=== PATIENT | female | born 1975 | race Caucasian/White ===

== ENCOUNTER 2017-07-08 15:55 | Outpatient (CLI) | payer BC ==
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
== END 2017-07-08 15:56 ==
LOC: RAD 15:55
PROVIDERS: ATTEND Family Medicine
DX: M54.2 Cervicalgia (principal); M54.41 Lumbago with sciatica, right side
CPT/HCPCS: 72040; 72100

== ENCOUNTER 2017-09-10 10:39 | Outpatient (CLI) | payer BC | END 2017-09-10 10:40 | LOC: LABRHC 10:39 | PROVIDERS: ATTEND Physician Assistant | DX: R30.0 Dysuria (principal) | CPT/HCPCS: 87086 ==

== ENCOUNTER 2017-09-11 08:04 | Outpatient (CLI) | payer BC ==
[2017-09-11 08:39] LABS: BASOPHILS % 0.6 (0.0-1.5); EOSINOPHILS % 1.7 % (0.0-6.8); MEAN CORPUSCULAR HEMOGLOBIN 27.9 pg (28.0-34.0); MEAN CORPUSCULAR VOLUME 86.3 fl (80.0-100.0); NEUTROPHILS # 8.9 # k/uL (1.4-7.7)
[2017-09-11 09:06] LABS: eGFR (African) > 60; eGFR (Non-African) > 60
== END 2017-09-11 08:06 ==
LOC: LAB 08:04
PROVIDERS: ATTEND Physician Assistant
DX: R63.5 Abnormal weight gain (principal); R53.83 Other fatigue; M25.50 Pain in unspecified joint
CPT/HCPCS: 36415; 80053; 84443; 85025; 85651; 86038; 86431

== ENCOUNTER 2017-11-14 10:56 | Outpatient (CLI) | payer BC ==
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
== END 2017-11-14 12:20 ==
LOC: RHEU 10:56
PROVIDERS: ATTEND Internal Medicine
DX: M13.0 Polyarthritis, unspecified (principal)
CPT/HCPCS: 36415; 99213; 99214

== ENCOUNTER 2017-12-19 14:50 | Outpatient (CLI) | payer BC ==
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
== END 2017-12-19 15:00 ==
LOC: RHEU 14:50
PROVIDERS: ATTEND Internal Medicine
DX: M13.0 Polyarthritis, unspecified (principal)
CPT/HCPCS: 99213; 99214

== ENCOUNTER 2018-01-16 13:18 | Outpatient (CLI) | payer BC ==
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
== END 2018-01-16 13:20 ==
LOC: RHEU 13:18
PROVIDERS: ATTEND Internal Medicine
DX: M06.09 Rheumatoid arthritis without rheumatoid factor, multiple sites (principal)
CPT/HCPCS: 99213; 99214

== ENCOUNTER 2018-03-20 13:25 | Outpatient (CLI) | payer BC ==
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
== END 2018-03-20 13:26 ==
LOC: RHEU 13:25
PROVIDERS: ATTEND Internal Medicine
DX: M06.9 Rheumatoid arthritis, unspecified (principal)
CPT/HCPCS: 99213; 99214

== ENCOUNTER 2018-05-22 11:43 | Outpatient (CLI) | payer BC ==
--- NOTE | 2018-06-03 11:21 | OP Clinic Progress Note ---
REASON FOR VISIT: Hattie Mello returns for follow up of seronegative rheumatoid arthritis. She is on prednisone 5 mg daily and Plaquenil 200 mg twice a day. She tried to stop her prednisone and developed worsening joint pain and stiffness. She still has some achiness and pain that is maybe 3 over 10. Plaquenil is causing her some abdominal discomfort and bloating. REVIEW OF SYSTEMS: No fevers, chills, sweats, chest pain, shortness of breath, cough, or wheezing. PHYSICAL EXAMINATION: VITAL SIGNS: BP: 130/70, P: 70, R: 14, T: 98.4. HEENT: Grossly unremarkable. LUNGS: Clear. HEART: Regular rate and rhythm. ABDOMEN: Soft. VASCULAR: No edema. No cyanosis. JOINTS: MTPs and ankles are tender. MCPs and wrists are tender but no synovitis. IMPRESSION: Seronegative rheumatoid arthritis of multiple sites having failed Plaquenil. PLAN: 1. I am keeping her on prednisone 5 mg daily. 2. We are going to stop her Plaquenil due to lack of effect and intolerance. 3. I am instituting methotrexate 3 tablets weekly with Folic acid supplementation. 4. I have asked her to follow up with Dr. Ryanne Castillo in [place]. Thank you very much. ANGÉLICA
== END 2018-05-22 12:05 ==
LOC: RHEU 11:43
PROVIDERS: ATTEND Internal Medicine
DX: M06.00 Rheumatoid arthritis without rheumatoid factor, unspecified site (principal)
CPT/HCPCS: 99213